=== PATIENT | female | born 1945 | race Hispanic/Latino ===

== ENCOUNTER → 2021-09-06 | Outpatient (CLI) | payer OTHER ==
[~2021-09-06] MED LIST: IOHEXOL-350 75 ML VIAL IV ONE
== END | disposition home or self-care (01) ==
LOC: RAH 11:42
PROVIDERS: ATTEND Internal Medicine
DX: K57.30 Diverticulosis of large intestine without perforation or abscess without bleeding (principal); N81.10 Cystocele, unspecified; R10.2 Pelvic and perineal pain; R10.821 Right upper quadrant rebound abdominal tenderness; Z98.82 Breast implant status
CPT/HCPCS: 74178; Q9967